=== PATIENT | female | born 1965 | race Caucasian/White ===

== ENCOUNTER → 2020-08-08 11:20 | Outpatient (CLI) | payer BC, SELFPAY ==
--- NOTE | ~2020-08-08 | XR_ITS ---
EXAMINATION:XR cervical spine min 6V DATE: 08/08/2020 11:44 INDICATION: Neck pain. 2 weeks of left shoulder and arm pain and numbness. TECHNIQUE: AP, lateral, lateral swimmers, lateral flexion, lateral extension, left and right oblique and odontoid views of the cervical spine are provided. COMPARISON: None FINDINGS: Odontoid is intact. Normal atlantoaxial interval. There is straightening of the normal cervical lord osis with no spondylolisthesis in the neutral position. Limited motion with attempted flexion or exte nsion. Approximately 1 mm anterolisthesis C4 on C5 with flexion. No spondylolisthesis in neutral or w ith extension. Vertebral body heights are normal. Mild disc height loss at C6-C7 with small anterior and posterior endplate osteophytes resulting in mild central canal stenosis. Minimal disc height loss at C5-C6. Moderate facet osteoarthritis on the left at C5-C6 without significant neural foraminal na rrowing. Mild bilateral uncovertebral and facet osteoarthritis at C6-C7 resulting in mild bilateral n eural foraminal stenosis. Prevertebral soft tissues are normal. IMPRESSION: 1. Mild cervical spondylosis. Reviewed, dictated and finalized at location A. OLL ANALYST
== END ==
PROVIDERS: Visit Provider Chiropractor
DX: M47.896 Other spondylosis, lumbar region (principal)
CPT/HCPCS: 72052

== ENCOUNTER → 2020-08-23 14:17 | Outpatient (CLI) | payer BC, SELFPAY ==
--- NOTE | ~2020-08-23 | MR_ITS ---
EXAMINATION: MR cervical spine wo con DATE: 08/23/2020 15:04 INDICATION: Cervical spondylosis. Neck pain. Left arm numbness and weakness. TECHNIQUE: Magnetic resonance imaging (MRI) of the cervical spine was performed without intravenous c ontrast. Sequences included sagittal T2-weighted FSE, sagittal STIR FSE, sagittal T1-weighted FSE, ax ial MERGE, and axial T2-weighted FSE. COMPARISON: Cervical spine radiographs 08/08/2020 FINDINGS: There is 7 degrees dextrocurvature of cervical spine. Vertebral body heights are normal. Th ere is mildly decreased disc height at C3-C4 and moderately decreased disc height at C6-C7. There is a Schmorl's node of inferior endplate of C7. The spinal cord signal intensity is normal. The followin g disc levels are specifically discussed: C2-C3: There is a central protrusion. There is no uncovertebral joint osteoarthritis. There is modera te right and mild left facet joint osteoarthritis. There is no neural foraminal stenosis. There is no central canal stenosis. C3-C4: The disc is bulging. There is mild bilateral uncovertebral joint osteoarthritis. There is mild bilateral facet joint osteoarthritis. There is mild left neural foraminal stenosis. There is mild ce ntral canal stenosis. C4-C5: The disc does not extend beyond the endplate margin. There is moderate left uncovertebral join t osteoarthritis. There is mild right and severe left facet joint osteoarthritis. There is mild left neural foraminal stenosis. There is no central canal stenosis. C5-C6: The disc does not extend beyond the endplate margin. There is mild left uncovertebral joint os teoarthritis. There is moderate left facet joint osteoarthritis. There is no neural foraminal stenosi s. There is no central canal stenosis. C6-C7: The disc is bulging with superimposed left central and foraminal zone extrusion. There is mild right and moderate left uncovertebral joint osteoarthritis. There is mild right and moderate left fa cet joint osteoarthritis. There is severe left neural foraminal stenosis. There is mild central canal stenosis with ventral indentation of the spinal cord. C7-T1: There is a right central extrusion. There is no uncovertebral joint osteoarthritis. There is m ild bilateral facet joint osteoarthritis. There is mild right neural foraminal stenosis. There is mil d central canal stenosis. IMPRESSION: 1. Severe spondylosis at C6-C7 including severe left neural foraminal stenosis. Reviewed, dictated and finalized at location A. R OFF
== END ==
PROVIDERS: Visit Provider Chiropractor
DX: M47.22 Other spondylosis with radiculopathy, cervical region (principal)
CPT/HCPCS: 72141

== ENCOUNTER 2021-04-01 11:19 | Emergency (ER) | payer BC, SELFPAY ==
[2021-04-01 11:25] VITALS: BP 122/62; PULSE 62; RESP 14; TEMP 36.6; O2SAT 100
--- NOTE | 2021-04-01 12:19 | ED.FEMALEGU ---
HPI - Female Genitourinary General Chief complaint: Urogenital-Female Stated complaint: poss uti Source: patient Mode of arrival: ambulatory Limitations: no limitations History of Present Illness HPI Narrative: Patient is a 55-year-old female who presents complaining of lower back pain and hematuria starting this a.m. Patient reports urgency and frequency. Patient reports history of bladder complications and sees Dr. Underwood. She reports botox injection in bladder approximately 3 months ago. She reports she is taking a trip to [place] and flying out tomorrow and needed to see if she had UTI. She denies taking [id number] medications at this time. MD elicited complaint: UTI Related Data Home Medications Medication Instructions Recorded Confirmed escitalopram oxalate 20 mg PO DAILY 04/01/21 04/01/21 hydroxyzine HCl 30 mg PO DAILY 04/01/21 04/01/21 temazepam 15 mg PO HS 04/01/21 04/01/21 Allergies Allergy/AdvReac Type Severity Reaction Status Date / Time codeine Allergy Rash Verified 04/01/21 11:42 latex Allergy Blister Verified 04/01/21 11:42 Sulfa (Sulfonamide Allergy Rash Verified 04/01/21 11:42 Antibiotics) Review of Systems Review of Systems: CONSTITUTIONAL: Denies fever, chills, or sweats. EYES: Denies visual changes, redness, or discharge. ENT: Denies rhinorrhea, congestion, sore throat, or otalgia. CARDIOVASCULAR: Denies chest pain, palpitations, or edema. RESPIRATORY: Denies cough or dyspnea. GASTROINTESTINAL: Denies abdominal pain, nausea, vomiting, or diarrhea. GENITOURINARY: Reports frequency, urgency and hematuria SKIN: Denies rash or itching. MUSCULOSKELETAL: Denies back pain, joint pain, or myalgia. NEUROLOGIC: Denies headache, numbness, dizziness, or weakness. PSYCHIATRIC: Denies anxiety or depression. Exam Narrative: GENERAL: Well-appearing, well-nourished, and in no acute distress. HEAD: Normocephalic, atraumatic. EYES: EOMI. No redness or drainage. Conjunctiva are normal. ENT: Mucous membranes pink and moist. CHEST: No respiratory distress. HEART: Regular rate and rhythm. GI: Soft, nontender without rebound, or guarding. No distention. MUSCULOSKELETAL: Tenderness to the lumbar spine bilaterally with palpation EXTREMITIES: Normal range of motion. No edema. SKIN: Warm, dry, no rash. NEURO: No focal deficits. Alert and oriented x3. Gait steady. PSYCH: Normal affect. No signs of depression or anxiety. Course Vital Signs Vital signs: Vital Signs Temperature 36.6 C 04/01/21 11:25 Pulse Rate 62 04/01/21 11:25 Respiratory Rate 14 04/01/21 11:25 Blood Pressure 122/62 04/01/21 11:25 Pulse Oximetry 100 04/01/21 11:25 Temperature 36.6 C 04/01/21 11:25 Pulse Rate 62 04/01/21 11:25 Respiratory Rate 14 04/01/21 11:25 Blood Pressure 122/62 04/01/21 11:25 Pulse Oximetry 100 04/01/21 11:25 Reviewed MDM - Female Genitourinary MDM Narrative Medical decision making narrative: Discussed with patient that we will start on antibiotics because patient is symptomatic. Urged patient to call her urologist on-call number over the weekend since she will be traveling out of the [facility] for further instructions from Dr. Underwood. Patient encouraged to be seen in the emergency department for further evaluation as well, which she refuses at this time. Differential Diagnosis Differential diagnosis: Likely urinary tract infection, trichomoniasis and cervicitis Lab Data Attestation: I reviewed the patient's lab results. Labs: Urine Glucose Negative Reference Range: Negative Urine Bilirubin Negative Reference Range: Negative Urine Ketone Negative Reference Range: Negative Urine Specific [place] 1.020 Reference Rang
== END 2021-04-01 12:38 | disposition home or self-care (01) ==
PROVIDERS: Emergency Provider Nurse Practitioner
DX: R35.0 Frequency of micturition (principal)
CPT/HCPCS: 81003; 87077; 87086; 87088; 87186; 99213; G0463

== ENCOUNTER 2021-04-19 10:08 | Outpatient (CLI) | payer BC, SELFPAY ==
--- NOTE | ~2021-04-19 | XR_ITS ---
EXAMINATION: XR abdomen/kub 1V INDICATION: Urolithiasis TECHNIQUE: Supine views of the abdomen were obtained on 2 radiographs. COMPARISON: None FINDINGS: A 6 mm calcification projects over the left L2 transverse process which could reflect a sto ne in the proximal ureter. No definite additional urolithiasis effected. There are surgical changes i n the stomach and rectum as well as a surgical clip in the right upper quadrant. There are phlebolith s of the left pelvis. Mild osteoarthritis is noted in the hips. The bowel gas pattern is normal. IMPRESSION: 1. Possible left proximal ureteral stone. Reviewed, dictated and finalized at location A.
== END 2021-04-19 10:09 | disposition home or self-care (01) ==
LOC: ANHIMG 10:17
PROVIDERS: Visit Provider Nurse Practitioner Adult Health
DX: N20.0 Calculus of kidney (principal); M16.0 Bilateral primary osteoarthritis of hip
CPT/HCPCS: 74018

== ENCOUNTER 2021-04-27 09:08 | Outpatient (CLI) | payer BC, SELFPAY ==
[2021-04-27 09:40] LABS: INR 0.9; Prothrombin Time 12.1 Seconds (11.1-14.7)
[2021-04-27 09:41] LABS: Partial Thromboplastin Time 26.9 SECONDS (22.3-36.8)
== END 2021-04-27 09:09 | disposition home or self-care (01) ==
LOC: ANHSURGERY 09:12
PROVIDERS: Visit Provider Urology
DX: N20.0 Calculus of kidney (principal); Z01.818 Encounter for other preprocedural examination
CPT/HCPCS: 36415; 85610; 85730

== ENCOUNTER 2021-04-28 02:58 | Day surgery (SDC) | payer BC, SELFPAY ==
[2021-04-26 11:21] VITALS: BMI 37.4
--- NOTE | ~2021-04-28 | XR_ITS ---
EXAMINATION: XR abdomen/kub 1V EXAM DATE: 04/28/2021 06:17 INDICATION: Lithotripsy. TECHNIQUE: Frontal projection of the upper abdomen, frontal projection lower abdomen/pelvis for inter pretation. Comparison is made to prior examination from 04/19/2021. FINDINGS: There is calcific density projecting over the left L2 transverse process measuring about 7 mm in size, possible UPJ stone. Appearance and position appear unchanged compared to prior study, cor relate with outside cross-sectional imaging if available. Moderate amount of colonic stool. Cholecyst ectomy clips. Right upper quadrant anastomosis material and sigmoid anastomosis material. Mild to mod erate lumbar dextroscoliosis. Nonobstructive bowel gas pattern. IMPRESSION: Calcification projecting over left L2 transverse process, could be UPJ stone. Reviewed, dictated and finalized at location G.
[2021-04-28 06:31] VITALS: BP 130/78; PULSE 60; RESP 18; TEMP 36.6; O2SAT 100
[2021-04-28] MEDS: LACTATED RINGERS 1,000 ML 30 ML IV CONT ×2 (06:39→08:29)
--- NOTE | 2021-04-28 07:27 | P.PNAN_ITS ---
Anes - Eval Pre Procedure Procedure: Operation Date: 04/28/21 07:30 Proposed Procedures p Left Extracorporeal Shock Wave Lithotripsy - Parker Truong MD Date/Time: 04/28/21 07:27 Pre Op Diagnosis: left renal kidney stone, gross hematuria Patient Data Age: 55 Gender: F Height: 1.63 m Weight: 102.3 kg Last Vital Signs Temp 36.6 C 04/28/21 06:31 Pulse 60 04/28/21 06:31 Resp 18 04/28/21 06:31 BP 130/78 04/28/21 06:31 Pulse Ox 100 04/28/21 06:31 Allergies Allergy/AdvReac Type Severity Reaction Status Date / Time codeine Allergy Rash Verified 04/28/21 06:28 latex Allergy Blister Verified 04/28/21 06:28 Sulfa (Sulfonamide Allergy Rash Verified 04/28/21 06:28 Antibiotics) Home Medications Medication Instructions Recorded Confirmed Type escitalopram oxalate 20 mg PO DAILY 04/01/21 04/28/21 History hydroxyzine HCl 30 mg PO DAILY 04/01/21 04/28/21 History temazepam 15 mg PO HS 04/01/21 04/28/21 History lamotrigine 200 mg PO BID 04/26/21 04/28/21 History Patient hx anesthesia problems: none Family hx anesthesia problems: none Results Review: All pre-operative results and documents have been reviewed as part of the pre-operative evaluation. FORMERLY [facility], [facility] Past Medical History Medical History (Updated 04/28/21 @ 07:34 by Lesly Wilburn CRNA) Depression Elevated liver enzymes Insomnia Obesity (BMI 30-39.9) Social History Social History Smoking status: Never smoker Alcohol intake: never Substance use: never Substance use type: does not use Living arrangements: with family Spiritual care concerns: No Exam Day of Procedure 04/28/21 07:27
--- NOTE | 2021-04-28 07:29 | WPDHPUPDATE1 ---
History and Physical Update Update Date/Time: 04/28/21 07:29 History and Physical has been reviewed, including an updated exam of the patient. There are NO changes in the patient's condition. Risks, benefits, and alternatives have been discussed and questions answered. Patient agrees to proceed with procedure.
[2021-04-28] MEDS: ceFAZolin 2 GM/D5W 50 ML 2 GM/50 ML BAG IVPB (07:38)
--- NOTE | 2021-04-28 07:39 | WPDANESEPPF ---
Anes - Initial Pre Proc Eval Procedure: Operation Date: 04/28/21 07:30 Proposed Procedures p Left Extracorporeal Shock Wave Lithotripsy - Parker Truong MD Date/Time: 04/28/21 07:39 Surgeon: Parker Truong MD Pre Op Diagnosis: left renal kidney stone, gross hematuria Patient Data Age: 55 Gender: F Height: 1.63 m Weight: 102.3 kg Last Vital Signs Temp 97.8 F 04/28/21 06:31 Pulse 60 04/28/21 06:31 Resp 18 04/28/21 06:31 BP 130/78 04/28/21 06:31 Pulse Ox 100 04/28/21 06:31 Allergies Allergy/AdvReac Type Severity Reaction Status Date / Time codeine Allergy Rash Verified 04/28/21 06:28 latex Allergy Blister Verified 04/28/21 06:28 Sulfa (Sulfonamide Allergy Rash Verified 04/28/21 06:28 Antibiotics) Home Medications Medication Instructions Recorded Confirmed Type escitalopram oxalate 20 mg PO DAILY 04/01/21 04/28/21 History hydroxyzine HCl 30 mg PO DAILY 04/01/21 04/28/21 History temazepam 15 mg PO HS 04/01/21 04/28/21 History lamotrigine 200 mg PO BID 04/26/21 04/28/21 History Patient hx anesthesia problems: none Family hx anesthesia problems: none Results Review: All pre-operative results and documents have been reviewed as part of the pre-operative evaluation. [facility] Past Medical History Medical History (Updated 04/28/21 @ 07:34 by Lesly Wilburn CRNA) Depression Elevated liver enzymes Insomnia Obesity (BMI 30-39.9) Social History Social History Smoking status: Never smoker Alcohol intake: never Substance use: never Substance use type: does not use Living arrangements: with family Spiritual care concerns: No Anes - Eval Final PreProcedure Day of Procedure 04/28/21 07:39 Patient weight: obese Heart: regular rate and rhythm Lungs: clear to auscultation Airway: Mallampati scale class III Neurological: alert and oriented Last oral intake: >/= 8 hours ASA classification: III Emergent: no Anesthetic plan: proceed Anesthesia type and monitoring: general LMA and standard monitoring Results Review: All pre-operative results and documents have been reviewed as part of the pre-operative evaluation. Informed Consent: The patient's anesthetic plan and its attendant risks and benefits were discussed with the patient/family/POA. Questions were solicited and answers provided to the satisfaction of the patient/family/POA.
--- NOTE | 2021-04-28 08:20 | W.PM.PROC2 ---
Procedure Note - Detailed Date of Procedure 04/28/21 Pre-op Diagnosis left proximal ureteral calculus Post-op Diagnosis same (Left proximal ureteral calculus) Procedure Performed ESWL of left ureteral calculus Surgeon Parker Truong MD Anesthesia general Description of Procedure Patient is taken to the operative suite and correctly identified. Once anesthesia was obtained the stone was localized to both planes. Three thousand shocks were given to the stone. Patient tolerated procedure well without complications and was taken recovery stable condition. She will follow up in approximately 10 days with KUB. Drains No Packing No Pathology none sent Complications No immediate complications Condition stable Disposition PACU
[2021-04-28 08:29] VITALS: BP 155/84; PULSE 93; RESP 12; TEMP 36.7; O2SAT 100
[2021-04-28 08:40] VITALS: BP 144/78; PULSE 85; RESP 15; O2SAT 100
[2021-04-28 08:50] VITALS: BP 141/76; PULSE 84; RESP 20; O2SAT 98
[2021-04-28 08:54] VITALS: BP 154/78; PULSE 75; RESP 16
[2021-04-28 09:24] VITALS: BP 147/61; PULSE 77; RESP 16
== END 2021-04-28 09:40 | disposition home or self-care (01) ==
PROVIDERS: Visit Provider Urology
PROC: (CPT 50590; principal; 2021-04-28 07:30)
DX: N20.1 Calculus of ureter (principal); F32.9 Major depressive disorder, single episode, unspecified; E66.9 Obesity, unspecified; Z68.38 Body mass index [BMI] 38.0-38.9, adult
CPT/HCPCS: 50590; 36415; 74018; 85610; 85730; J0690; J1100; J2250; J2405; J2704; J3010; J7120

== ENCOUNTER 2021-05-18 10:31 | Outpatient (CLI) | payer BC, SELFPAY ==
--- NOTE | ~2021-05-18 | XR_ITS ---
EXAMINATION: XR abdomen/kub 1V EXAM DATE: 05/18/2021 10:52 INDICATION: Left renal stone. TECHNIQUE: Frontal projection of the upper abdomen, frontal projection lower abdomen/pelvis for inter pretation. Comparison is made to prior examination from 04/28/2021. FINDINGS: There are 2 calcific densities projecting between the left L1 and L2 transverse processes, not significantly changed compared to previous examination earlier this month, could be UPJ stones. There is nonobstructive bowel gas pattern. There is mild lumbar levoscoliosis and mild to moderate sp ondylosis. There is no organomegaly. Left pelvic calcifications, phleboliths. Rectosigmoid anastomosi s material. IMPRESSION: 1. Calcifications project over left UPJ unchanged. Reviewed, dictated and finalized at location B.
== END 2021-05-18 10:32 | disposition home or self-care (01) ==
LOC: ANHIMG 10:35
PROVIDERS: Visit Provider Nurse Practitioner Adult Health
DX: N20.0 Calculus of kidney (principal)
CPT/HCPCS: 74018

== ENCOUNTER → 2021-06-01 14:53 | Outpatient (CLI) | payer BC, SELFPAY ==
--- NOTE | ~2021-06-01 | CT_ITS ---
EXAMINATION: CT abdomen pelvis wo con DATE: 06/01/2021 15:32 INDICATION: Left renal stone TECHNIQUE: Computed tomography (CT) of the abdomen and pelvis was performed without intravenous contr ast. The dose-length product was 926.22 mGy-cm. Automated exposure control and iterative reconstructi on technique were employed. COMPARISON: None. FINDINGS: Lung bases are unremarkable. Heart size normal. No significant pleural or pericardial effus ion. There are changes of gastric bypass surgery. There are cholecystectomy clips. There are 1-2 ston es at the left UPJ, measuring up to 3 mm. Mild hydronephrosis. Bowel gas pattern is nonobstructive. M oderate lumbar spondylosis. Status post cholecystectomy. The liver, spleen, pancreas, adrenal glands and right kidney are unremar kable. No free air or free fluid. IMPRESSION: 1. Left UPJ stones measuring up to 3 mm with mild hydronephrosis. Reviewed, dictated and finalized at location A. HODRAMATIST
--- NOTE | ~2021-06-01 | XR_ITS ---
XR abdomen/kub 1V 06/01/2021 15:32 Indication: Left renal stone Procedure: KUB Comparison: 05/18/2021 Findings: There are small calcific densities in the left upper abdomen adjacent to the L1-2 disc spac e, suspicious for renal stones. There are surgical changes in the left upper abdomen. There are jon cystectomy clips. There are pelvic phleboliths. Nonobstructive bowel gas pattern with moderate coloni c fecal loading. Impression: 1: Stable left nephrolithiasis allowing for differences of technique. Reviewed, dictated and finalized at location A. STANT PROFESSOR OF MUSIC Impression: 1: Stable left nephrolithiasis allowing for differences of technique.
== END ==
PROVIDERS: Visit Provider Urology
DX: N20.2 Calculus of kidney with calculus of ureter (principal)
CPT/HCPCS: 74018; 74176

== ENCOUNTER → 2021-06-19 12:35 | Outpatient (CLI) | payer BC, SELFPAY ==
--- NOTE | ~2021-06-19 | XR_ITS ---
EXAMINATION: XR abdomen/kub 1V DATE: 06/19/2021 12:58 INDICATION: Calculus of kidney. TECHNIQUE: A supine view of the abdomen on 2 radiographs was obtained. COMPARISON: CT abdomen and pelvis 06/01/2021 FINDINGS: There are no dilated loops of bowel. There is a bowel staple line in the sigmoid colon. The re is a staple line in the stomach. There are 5 mm and 3 mm stones in proximal left ureter. There are phleboliths in the pelvis. IMPRESSION: 1. 5 mm and 3 mm stones in proximal left ureter. Reviewed, dictated and finalized at location A. ICING REP
== END ==
PROVIDERS: Visit Provider Urology
DX: N20.0 Calculus of kidney (principal)
CPT/HCPCS: 74018

== ENCOUNTER 2021-07-04 10:57 | Outpatient (CLI) | payer BC, SELFPAY ==
--- NOTE | 2021-07-04 11:05 | ECG_ITS ---
Measurements Intervals [place] Rate: 73 P: 48 DC: 182 QRS: 18 QRSD: 92 T: 40 QT: 396 QTc: 439 Interpretive Statements SINUS RHYTHM CONSIDER INFERIOR INFARCT, AGE INDETERMINATE BASELINE WANDER- II, III, AVR, AVL, AVF, V1-V4 ABNORMAL ECG Electronically Signed On 07-04-2021 11:47:06 GIFTS OFFICER by Jelani Finney D.O.
== END 2021-07-04 10:58 | disposition home or self-care (01) ==
LOC: ANHSURGERY 11:02
PROVIDERS: Visit Provider Urology
DX: Z01.810 Encounter for preprocedural cardiovascular examination (principal); E78.00 Pure hypercholesterolemia, unspecified; R94.31 Abnormal electrocardiogram [ECG] [EKG]
CPT/HCPCS: 93005

== ENCOUNTER 2021-07-07 03:25 | Day surgery (SDC) | payer BC, SELFPAY ==
--- NOTE | 2021-07-03 13:15 | P.HP_ITS ---
History of Present Illness History of Present Illness Consent: Risks, benefits, and alternatives have been discussed and questions answered. Patient agrees to proceed with procedure. Chief complaint: two left ureteral stones Narrative: Natasha Aguilar is a 55 year old female who is status post ESWL for an 8 mm left proximal ureteral stone on 06/18 2021. The stone failed to fragment completely and she presents now for a 2nd ESWL. Review of Systems Cardiovascular: Cardiovascular: Denies chest pain, Denies lightheadedness, Denies palpitations and Denies dyspnea Respiratory: Respiratory: Denies dyspnea Gastrointestinal: Gastrointestinal: Denies diarrhea, Denies nausea and Denies vomiting Genitourinary: Genitourinary: Denies hematuria and Denies dysuria Endocrine: Endocrine: Denies palpitations PMFSH Past Medical History Medical History Depression Elevated liver enzymes Insomnia Obesity (BMI 30-39.9) Social History Social History Smoking status: Never smoker Alcohol intake: never Substance use: never Substance use type: does not use Spiritual care concerns: No Meds Home Medications and Allergies Home Medications Medication Instructions Recorded Confirmed Type escitalopram oxalate 20 mg PO DAILY 04/01/21 04/28/21 History hydroxyzine HCl 30 mg PO DAILY 04/01/21 04/28/21 History temazepam 15 mg PO HS 04/01/21 04/28/21 History lamotrigine 200 mg PO BID 04/26/21 04/28/21 History Allergies Allergy/AdvReac Type Severity Reaction Status Date / Time codeine Allergy Rash Verified 04/28/21 06:28 latex Allergy Blister Verified 04/28/21 06:28 Sulfa (Sulfonamide Allergy Rash Verified 04/28/21 06:28 Antibiotics) Assessment and Plan Assessment and plan (1) Left ureteral calculus: Code(s): N20.1 - Calculus of ureter Status: Acute Assessment and Plan: * Left ESWL
[2021-07-03 14:13] VITALS: BMI 39.8
--- NOTE | 2021-07-03 14:29 | PC.NURSE ---
Report to the Outpatient Waiting Room, entrance under the green pavilion located off [facility], at time __9:00AM on date __07/07/21 . OR Time: ___11:00AM . - You and your visitor will be asked a series of questions to screen for COVID 19 for your protection. - A mask is required within the hospital. - Only one visitor is allowed at this time. Patient visitors will be guided where to wait when not with patient. Preoperative COVID Testing Requirements: No COVID Test needed if: (proof is required; if not received patient will have Rapid Test prior to entry) - Patient has received COVID Vaccine at least 14 days prior to procedure date or - Patient has positive COVID test result within last 90 days of surgery date. COVID Test needed if above criteria is not met If not COVID vaccinated a COVID test must be conducted within 72 hours of surgery and patient is asked to isolate self from time of testing until procedure. You will go to the [facility] for your COVID testing. The [facility] site is located at the corner of [address] [facility]. You will only be called if COVID results are positive and your surgeon may reschedule your elective surgery date. Patients may have clear liquids (water, carbonated beverages, clear teas, apple juice) until 3 hours prior to surgery with a maximum of 20 ounces. - No food from midnight until time of surgery - Infants may have breast milk until 4 hours before surgery, formula 6 hours prior to surgery. - Children will be allowed to drink immediately following surgery. If applicable, please bring a bottle or sippy cup to assist with drinking. Juice, water, soda, and popsicles are readily available. For infants on formula, please bring formula the day of surgery. Pacifiers are allowed. Take the following medications with a SIP of water the morning of surgery: __LAMOTRIGINE, HYDROXYZINE NEEDED Medications to discontinue per physician NONE Date to take last dose Please no make-up, nail romansh, hairspray, perfume, deodorant, or body powder the day of surgery. No jewelry (including any body piercings) or valuables the day of surgery, leave them at home. Please take a shower or bath the night before, or the morning of, surgery with an antibacterial soap. Wear comfortable, loose fitting clothing. Children are encouraged to wear pajamas. - Jewelry must be removed prior to entering the operating room. Rings and piercings that are not removed may be cut off. - The hospital will not accept responsibility for valuables. - Please leave all valuables, including medications, at home the day of surgery. If you are going home after surgery, a licensed steam train driver must drive you home. - NO public transportation without another adult. - We recommend that an adult stay with you for 24 hours following discharge. - We also recommend that you do not drive, make important decision, drink alcoholic beverages, or take any drugs that were not prescribed by your health care provider for at least 24 hours after your discharge time. For Pediatric surgeries, we recommend two adults accompany the child home (only one inside the building at this time). Follow any additional instructions given to you from your surgeon. Telephone instructions given to ___PATIENT and asked if any additional questions and then verbalized understanding. Patient advised to call surgeon office or pre surgery nurse liaison [phone] if any additional questions.
--- NOTE | ~2021-07-07 | XR_ITS ---
EXAMINATION: XR abdomen/kub 1V INDICATION: Left-sided stone TECHNIQUE: Supine views of the abdomen were obtained on 2 radiographs. COMPARISON: 06/19/2021 FINDINGS: Centimeters measuring 5 mm and 3 mm are again seen in the proximal left ureter near the lev el of the left L2 transverse process. Phleboliths are noted in the pelvis. The bowel gas pattern is n ormal. There is a surgical anastomosis of the pelvis. IMPRESSION: 1. Stable left proximal ureteral stones. Reviewed, dictated and finalized at location A. S ACCOUNT REPRESENTATIVE
--- NOTE | 2021-07-07 06:47 | WPDHPUPDATE1 ---
History and Physical Update Update Date/Time: 07/07/21 06:47 History and Physical has been reviewed, including an updated exam of the patient. There are NO changes in the patient's condition. Risks, benefits, and alternatives have been discussed and questions answered. Patient agrees to proceed with procedure.
[2021-07-07 09:13] VITALS: BP 127/73; PULSE 66; RESP 16; TEMP 36.6; O2SAT 98
--- NOTE | 2021-07-07 09:36 | WPDANESEPPF ---
Anes - Initial Pre Proc Eval Procedure: Operation Date: 07/07/21 11:00 Proposed Procedures p Left Extracorporeal Shock Wave Lithotripsy - Dominic Paz MD s Possible Cystoscopy, Possible Ureteroscopy, Possible Left Retrograde Pyelogram, Possible Left Stent Placement, - Dominic Paz MD s Possible Holmium Laser Procedure - Dominic Paz MD Date/Time: 07/07/21 09:36 Surgeon: Dominic Paz MD Pre Op Diagnosis: two left ureteral stones Patient Data Age: 56 Gender: F Height: 1.6 m Weight: 102 kg Allergies Allergy/AdvReac Type Severity Reaction Status Date / Time codeine Allergy Rash Verified 07/03/21 14:10 latex Allergy Blister Verified 07/03/21 14:10 Sulfa (Sulfonamide Allergy Rash Verified 07/03/21 14:10 Antibiotics) Home Medications Medication Instructions Recorded Confirmed Type escitalopram oxalate 20 mg PO HS 04/01/21 07/03/21 History hydroxyzine HCl 30 mg PO DAILY PRN 04/01/21 07/03/21 History temazepam 15 mg PO HS 04/01/21 07/03/21 History lamotrigine 200 mg PO BID 04/26/21 07/03/21 History atorvastatin 10 mg PO HS 07/03/21 07/03/21 History Patient hx anesthesia problems: none Family hx anesthesia problems: none Results Review: All pre-operative results and documents have been reviewed as part of the pre-operative evaluation. [facility] Past Medical History Medical History Depression Elevated liver enzymes Insomnia Obesity (BMI 30-39.9) Surgical History Surgical History (Updated 07/07/21 @ 09:36 by Adal Gutierrez MD) H/O lithotripsy History of gastric surgery Social History Social History Smoking status: Never smoker Alcohol intake: never Substance use: never Substance use type: does not use Living arrangements: with family Additional living arrangements comments: [facility] Spiritual care concerns: No Anes - Eval Final PreProcedure Day of Procedure 07/07/21 09:36 Patient weight: morbidly obese Heart: regular rate and rhythm Lungs: clear to auscultation Airway: Mallampati scale class III Neurological: alert and oriented Last oral intake: >/= 8 hours ASA classification: III Emergent: no Anesthetic plan: proceed Anesthesia type and monitoring: general LMA and standard monitoring Results Review: All pre-operative results and documents have been reviewed as part of the pre-operative evaluation. Informed Consent: The patient's anesthetic plan and its attendant risks and benefits were discussed with the patient/family/POA. Questions were solicited and answers provided to the satisfaction of the patient/family/POA.
[2021-07-07] MEDS: LACTATED RINGERS 1,000 ML 30 ML IV CONT (10:12)
[2021-07-07 10:29] LABS: INR 0.9
[2021-07-07 10:30] LABS: Partial Thromboplastin Time 24.7 SECONDS (22.3-36.8)
[2021-07-07] MEDS: ceFAZolin 2 GM/D5W 50 ML 2 GM/50 ML BAG IVPB (10:45)
[2021-07-07] MEDS: KETOROLAC 30 MG/ML VIAL (*BKC) IV PUSH (10:56)
--- NOTE | 2021-07-07 11:02 | W.PM.PROC2 ---
Procedure Note - Detailed Date of Procedure 07/07/21 Pre-op Diagnosis Two left ureteral stones Post-op Diagnosis same Procedure Performed Left ESWL Surgeon Dominic Paz MD Anesthesia general Description of Procedure The patient was brought to the operative suite where she was placed in the supine position on the Dornier lithotripsy table. The focal point of the lithotripter was placed at 2 contiguous stones in the left proximal ureter - each measuring 3-4mm. A total of 3000 shocks were delivered at a power setting of 5. There appeared to be good fragmentation of the stone. The patient tolerated the procedure well and was taken to the recovery room in good condition. Estimated Blood Loss 0 Drains No Packing No Pathology none sent Complications No immediate complications Condition stable Disposition PACU
[2021-07-07 11:34] VITALS: BP 114/79; PULSE 90; RESP 19; TEMP 36.3; O2SAT 100
[2021-07-07 11:50] VITALS: BP 118/57; PULSE 78; RESP 16; O2SAT 100
[2021-07-07 12:06] VITALS: BP 121/70; PULSE 74; RESP 16; O2SAT 99
[2021-07-07 12:07] VITALS: BP 125/69; PULSE 70; RESP 18
[2021-07-07 12:37] VITALS: BP 131/59; PULSE 62; RESP 18
== END 2021-07-07 13:00 | disposition home or self-care (01) ==
PROVIDERS: Visit Provider Urology
PROC: (CPT 50590; principal; 2021-07-07 11:00)
DX: N20.1 Calculus of ureter (principal); F32.9 Major depressive disorder, single episode, unspecified; E66.9 Obesity, unspecified; Z68.38 Body mass index [BMI] 38.0-38.9, adult; Z98.84 Bariatric surgery status
CPT/HCPCS: 50590; 36415; 74018; 85610; 85730; 93005; J0690; J1100; J1885; J2250; J2405; J2704; J7120

== ENCOUNTER 2021-07-18 11:17 | Outpatient (CLI) | payer BC, SELFPAY ==
--- NOTE | ~2021-07-18 | XR_ITS ---
EXAMINATION: XR abdomen/kub 1V INDICATION: Calculus of the ureter. TECHNIQUE: Supine views of the abdomen were obtained on 2 radiographs. COMPARISON: 07/07/2021 FINDINGS: Proximal left ureteral stones described on the recent comparison radiograph are no longer i dentified. No definite urolithiasis is identified. There are phleboliths in the pelvis. The bowel gas pattern is normal. There is a surgical anastomosis of the pelvis. IMPRESSION: 1. Previously described proximal left ureteral stone is not definitely identified. Reviewed, dictated and finalized at location F. NESE INTERPRETER IMPRESSION: 1. Previously described proximal left ureteral stone is not definitely identifi ed.
== END 2021-07-18 11:18 | disposition home or self-care (01) ==
LOC: ANHIMG 11:23
PROVIDERS: Visit Provider Urology
DX: N20.1 Calculus of ureter (principal)
CPT/HCPCS: 74018

== ENCOUNTER 2022-02-15 14:24 | Emergency (ER) | payer BC, SELFPAY ==
--- NOTE | 2022-02-15 14:28 | ED.URI ---
HPI - URI/Sore Throat General Chief Complaint: Upper Respiratory Infection Stated Complaint: Cough Time Seen by Provider: 02/15/22 14:28 Source: patient Mode of arrival: ambulatory Limitations: no limitations History of Present Illness HPI Narrative: Ms. Aguilar is a 56-year-old female patient presenting to the clinic today with complaints of cough and congestion x1 week. She reports she is bringing up a little bit of green phlegm. She only has some shortness of breath during coughing. States that the phlegm is pretty thick. She denies any fever or chills. She denies any chest pain. No known COVID exposure. Non-smoker. No history of COPD or asthma Related Data Home Medications Medication Instructions Recorded Confirmed escitalopram oxalate 20 mg tablet 20 mg PO HS 04/01/21 02/15/22 hydroxyzine HCl 10 mg tablet 30 mg PO DAILY PRN Anxiety 04/01/21 02/15/22 temazepam 15 mg capsule 15 mg PO HS 04/01/21 02/15/22 lamotrigine 200 mg disintegrating 200 mg PO BID 04/26/21 02/15/22 tablet atorvastatin 10 mg tablet 10 mg PO HS 07/03/21 02/15/22 multivit with min-folic 1 tablet PO 07/07/21 acid-lutein 200 mcg-137.5 mcg chewable tablet (Adult Multivitamin (w-lutein)) pantoprazole 40 mg tablet,delayed 40 mg PO BID 02/15/22 02/15/22 release Allergies Allergy/AdvReac Type Severity Reaction Status Date / Time latex Allergy Severe Difficulty Verified 02/15/22 14:36 Breathing codeine Allergy Intermediate Rash Verified 02/15/22 14:36 Sulfa (Sulfonamide Allergy Intermediate Rash Verified 02/15/22 14:36 Antibiotics) Review of Systems Review of Systems: Pertinent positives per HPI. Patient denies any fever, chills, rash, headache, visual changes, dizziness, runny nose, sore throat, shortness of breath, chest pain, palpitations, nausea, vomiting, diarrhea, constipation, abdominal pain, or any urinary issues. [facility] Past Medical History Medical History Depression Elevated liver enzymes Insomnia Obesity (BMI 30-39.9) Surgical History Surgical History H/O lithotripsy History of gastric surgery Social History Social History Smoking status: Never smoker Alcohol intake: never Substance use: never Substance use type: does not use Additional [facility] Spiritual care concerns: No Comments At the time of my signature, I reviewed and agree with the nursing past medical, surgical, social, and family history. There is no relevant family history pertinent to the patient complaint. Exam Narrative: General: Well-developed, obese, in no apparent distress Head: Normocephalic, atraumatic Eyes: Pupils equally round and reactive to light bilaterally, EOM intact, sclera and conjunctive clear, no discharge, lids normal Ears: TMs intact and clear, ear canals clear, no drainage, grossly hearing normal. Nose: Nares patent, no discharge, no inflammation, no sinus tenderness. Mouth: Oropharynx without lesions or masses, good dentition, MMM. Neck: Supple, trachea midline, no enlargement of anterior or posterior cervical nodes, no thyroid masses or goiter palpable. Cardio: Regular rate and rhythm, s1 and s2 normal, no murmur appreciated. Resp: Expiratory wheezing, no rhonchi, rales, or rubs Course Course Emergency Course: Portions of this record may have been created with voice recognition software. Level of Care: Express Care Visit Vital Signs Vital signs: Vital signs reviewed MDM - URI/Sore Throat MDM Narrative Medical decision making narrative: At the time of visit patient is resting comfortably on the exam table. Patient has expiratory wheezing. She does not smoke nor does she have a history of COPD or asthma. I suspect the patient has bronchitis and will treat with a prescription
[2022-02-15 14:35] VITALS: BP 120/59; PULSE 63; RESP 16; TEMP 37.2; O2SAT 100
[2022-02-15 14:39] VITALS: BP 120/59; PULSE 63; RESP 16; TEMP 37.2; O2SAT 100
== END 2022-02-15 14:47 | disposition home or self-care (01) ==
PROVIDERS: Emergency Provider Nurse Practitioner Family
DX: J40 Bronchitis, not specified as acute or chronic (principal); F32.A Depression, unspecified; E66.9 Obesity, unspecified; Z68.41 Body mass index [BMI] 40.0-44.9, adult
CPT/HCPCS: 99213; G0463